=== PATIENT | female | born 1935 | race African-American/Black ===

== ENCOUNTER 2018-06-02 08:29 | Emergency (ER) | payer OTHER ==
[~2018-06-02] VITALS: Ht 162.6 cm; Wt 65.0 kg
[~2018-06-02 08:29] MED LIST: ASPI-1159 PO
[2018-06-02] MEDS ORDERED: DILTIAZEM HCL 30MG TABLET PO ONE ×2 (09:15→14:30)
[2018-06-02] MEDS ORDERED: ASPIRIN 81MG TABLET PO ONE (09:15)
[2018-06-02 09:59] LABS: BASOPHILS % 0.3 % (0.0-2.0); EOSINOPHILS % 1.1 % (0.0-5.0); HEMATOCRIT. 42.5 % (36.0-48.0); HEMOGLOBIN. 14.1 g/dL (12.0-16.0); LYMPHOCYTES % 11.8 % (20.0-50.0); MEAN CORPUSCULAR HEMOGLOBIN 33.4 pg (28.0-32.0); MEAN CORPUSCULAR VOLUME 100.9 fL (81.0-99.0); MEAN PLATELET VOLUME 7.9 fl (7.4-10.4); MONOCYTES % 10.1 % (2.0-8.0); NEUTROPHILS % 76.7 % (40.0-76.0); PLATELET 224 x1000/uL (130-400); RED BLOOD CELL COUNT 4.21 mill/uL (4.2-5.4); RED CELL DISTRIBUTION WIDTH 13.4 % (11.6-14.6)
[2018-06-02 10:09] LABS: D-DIMER 0.33 mg/L FEU (<0.50); PARTIAL THROMBOPLASTIN TIME 26.6 sec (23.4-31.0); PROTHROMBIN TIME 10.4 sec (9.1-11.1)
[2018-06-02 10:12] LABS: CHLORIDE 105 mEq/L (98-107)
[2018-06-02 10:15] LABS: ETHANOL BLOOD < 10 mg/dL
[2018-06-02 11:27] VITALS: BP 137/92
[2018-06-02] MEDS ORDERED: DIPHENHYDRAMINE 50MG/ML VIAL IV PRN (14:00)
[2018-06-02] MEDS ORDERED: HYDROCODONE/ACETAMINOPHEN 5/325MG TABLET PO PRN (14:00)
[2018-06-02] MEDS ORDERED: LORAZEPAM 2MG/ML CPJ IV PRN (14:00)
[2018-06-02] MEDS ORDERED: DOCUSATE SODIUM 100MG CAPSULE PO PRN (14:00)
[2018-06-02] MEDS ORDERED: MAGNESIUM/ALUMINUM HYDROXIDE/SIMETHICONE 30ML UDC PO PRN (14:00)
[2018-06-02] MEDS ORDERED: ONDANSETRON HCL 4MG/2ML INJ IV PRN (14:00)
[2018-06-02] MEDS ORDERED: HYDROMORPHONE HCL/PF 2MG/ML CPJ IV PRN (14:00)
[2018-06-02] MEDS ORDERED: IPRATROPIUM/ALBUTEROL 0.5-3(2.5)MG/3ML NEB INH PRN (14:00)
[2018-06-02] MEDS ORDERED: ACETAMINOPHEN 325MG TABLET PO PRN (14:00)
[2018-06-02] MEDS ORDERED: GUAIFENESIN 200MG/10ML SUGAR FREE UDC PO PRN (14:00)
[2018-06-02] MEDS ORDERED: ENOXAPARIN 40MG/0.4ML SYR SUBCUT SCH (14:00)
[2018-06-02] MEDS ORDERED: NA PHOS,M-B/NA PHOS,DI-BA ENEMA 118ML PR PRN (14:00)
[2018-06-02] MEDS ORDERED: CLONIDINE 0.1MG TABLET PO PRN (14:00)
[2018-06-03] MEDS ORDERED: ASPIRIN 81MG EC TABLET PO SCH (09:00)
== END 2018-06-02 16:11 | disposition short-term general hospital (02) ==
LOC: ER 08:29 → EDBEDREQ 11:57 → CANBEDREQ 15:27 → ER 16:11
DX: R00.0 Tachycardia, unspecified (principal); R07.89 Other chest pain; E03.9 Hypothyroidism, unspecified; I10 Essential (primary) hypertension; Z86.73 Personal history of transient ischemic attack (TIA), and cerebral infarction without residual deficits; Z79.82 Long term (current) use of aspirin; Z88.0 Allergy status to penicillin
CPT/HCPCS: 36415; 71045; 80053; 83690; 83880; 84443; 84484; 85025; 85379; 85610; 85730; 93005; 99285; G0482

== ENCOUNTER 2022-03-24 15:16 | Emergency (ER) | payer OTHER ==
[~2022-03-24] VITALS: Ht 167.6 cm; Wt 80.0 kg
[~2022-03-24 15:16] MED LIST changes: -ASPI-1159 PO; +ASPI-1497 PO
[2022-03-24] MEDS ORDERED: ASPIRIN 81MG TABLET PO ONE (16:00)
[2022-03-24 16:53] LABS: BASOPHILS % 0.4 % (0.0-2.0); HEMATOCRIT. 39.6 % (36.0-48.0); HEMOGLOBIN. 13.4 g/dL (12.0-16.0); LYMPHOCYTES % 17.2 % (20.0-50.0); MEAN CORPUSCULAR HEMOGLOBIN 33.3 pg (28.0-32.0); MEAN CORPUSCULAR VOLUME 98.3 fL (81.0-99.0); MEAN PLATELET VOLUME 7.7 fl (7.4-10.4); MONOCYTES % 9.4 % (2.0-8.0); PLATELET 187 x1000/uL (130-400); RED BLOOD CELL COUNT 4.03 mill/uL (4.2-5.4); RED CELL DISTRIBUTION WIDTH 13.1 % (11.6-14.6)
[2022-03-24 17:00] LABS: CHLORIDE 106 mEq/L (98-107)
[2022-03-24 17:16] LABS: D-DIMER 0.97 mg/L FEU (<0.50); PARTIAL THROMBOPLASTIN TIME 23.2 sec (23.4-31.0); PROTHROMBIN TIME 10.8 sec (9.6-11.0)
[2022-03-24 17:27] LABS: HEPATITIS B SURFACE ANTIGEN NEGATIVE
[2022-03-24 19:11] VITALS: BP 120/63
[2022-03-24] MEDS ORDERED: IOHEXOL-300 100 ML BOTTLE ONE (23:09)
[2022-03-24] MEDS ORDERED: IOHEXOL-350 100 ML BOTTLE ONE (23:10)
== END 2022-03-25 03:52 | disposition short-term general hospital (02) ==
LOC: ER 15:16 → CANBEDREQ 03-25 04:31
DX: I47.1 Supraventricular tachycardia (principal); R06.02 Shortness of breath; I10 Essential (primary) hypertension; E03.9 Hypothyroidism, unspecified; M19.90 Unspecified osteoarthritis, unspecified site; Z86.73 Personal history of transient ischemic attack (TIA), and cerebral infarction without residual deficits; Z20.822 Contact with and (suspected) exposure to COVID-19; Z88.0 Allergy status to penicillin
CPT/HCPCS: 36415; 71045; 71275; 80053; 83880; 84484; 85025; 85379; 85610; 85730; 86703; 93005; 99285; Q9967